=== PATIENT | female | born 1995 | race Asian ===

== ENCOUNTER 2018-10-01 12:55 | Emergency (ER) | payer OTHER ==
--- NOTE | 2018-10-01 13:25 | EDPHY ---
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 She has history of bipolar disorder and is on Latuda does have a single previous history of suicide attempt when she walked into traffic in the remote past. She is having more more anxiety which she attributes to school and school work and is brought in by a fellow student saying that "I do not want to be like this." She admits to intermittent suicidal ideation but no plan. She feels overwhelmed. Symptoms severe at this time. REVIEW OF SYSTEMS: Eye: no change in vision ENT: no sore throat Cardiac: no chest pain or syncope Pulmonary: She states she has had a mild fever cough headache and decreased appetite for the past couple of days. Not short of breath and no sputum production. Abdomen: no vomiting, diarrhea, abdominal pain Musculoskeletal: no back pain Skin: no rash Neuro: no headache, no stiff neck Constitutional: HPI : no urinary symptoms A comprehensive 10 point review of systems is otherwise negative aside from elements mentioned in the history of present illness. PAST MEDICAL HISTORY: Bipolar disorder and anxiety Social history: Denies drugs or alcohol General Appearance: Alert and conversant, cooperative. Eyes: No scleral icterus. ENT, Mouth: Normal mucous membranes. Respiratory: Normal respiratory effort, breath sounds equal, lungs are clear to auscultation. Cardiovascular: Regular rate and rhythm. Gastrointestinal: Abdomen is soft and non tender. Neurological: Alert, face symmetric, normal motor and sensory in extremities. Skin: 3 scratches on her left which which she says are from her cat Angeline. Musculoskeletal: No peripheral edema. Psychiatric: Tearful, depressed affect, denies hallucination or homicidal ideation. Emergency Department course/MDM: Plan for CBC chemistry screening labs and drug screen and mental health evaluation. The patient had a medical screening evaluation performed. There does not appear to be an acute emergent medical or surgical condition which would preclude psychiatric evaluation at this time. Mental health evaluation is requested at 1404. 1500: Signed out to Dr. Lugo with mental health evaluation pending at this time. It has been requested. (Fly Clarke) Constitutional: Initial Vital Signs Temperature (C) 36.5 C 10/01/18 13:07 Heart Rate 95 10/01/18 13:07 Respiratory Rate 22 H 10/01/18 13:07 Blood Pressure 115/71 10/01/18 13:07 O2 Sat (%) 97 10/01/18 13:07 O2 Delivery Mode Room Air Allergies/Adverse Reactions: No Known Allergies Allergy (Unverified 10/01/18 13:06) Home Medications: Medication Instructions Recorded Latuda 10/01/18 Xanax 10/01/18 Medical Decision Making ED Course/Re-evaluation: I took over care of this patient at 3:00 p.m.. The patient is here for depression and suicidal ideation. The patient currently is not on an M1 hold. The patient has been medically cleared. The patient is awaiting behavioral health evaluation. 3:45 p.m., this patient was seen and evaluated by Behavioral Health. She did not meet criteria for placement on an M1 hold. She is not suicidal. They recommended discharge with outpatient follow-up. I feel this is reasonable. Follow-up was thoroughly discussed with the patient. Return to emergency department precautions reviewed. All of her questions were answered. The patient was discharged in good condition. (Ezequiel Lugo) - Data Points Laboratory Results: Laboratory Results 10/01/18 13:34 10/01/18 13:34 10/01/18 10/01/18 10/01/18 13:43 13:34 13:34 WBC RBC Hgb Hct MCV MCH MCHC RDW Plt Count MPV Neut % (Auto) Lymph % (Auto) [place] % (Auto) Eos % (Auto) Baso % (Auto) Nucleat RBC Rel Count Absolute Neuts (auto) Absolute Lymphs (auto) Absolute Monos (auto) Absolute Eos (auto) Absolute Basos (auto) Absolute Nucleated RBC Immature Gran % Immature Gran # Sodium 139 mEq/L mEq/L (135-145) Potassium 4.0 mEq/L mEq/L (3.5-5.2) Chloride 103 mEq/L mEq/L (97-110) Carbon Dioxide 26 mEq/l mEq/l (22-31) Anion Gap 10 mEq/L mEq/L (6-14) BUN 9 mg/dL mg/dL (7-23) Creatinine 0.9 mg/dL mg/dL (0.6-1.0) Estimated GFR > 60 Glucose 92 mg/dL mg/dL (70-100) Calcium 9.1 mg/dL mg/dL (8.5-10.4) Beta HCG, Qual NEGATIVE Salicylates < 1.0 mg/dL L mg/dL (2.0-20.0) Urine Opiates Screen NEGATIVE (NEGATIVE) Acetaminophen < 10 mcg/mL L mcg/mL (10-30) Urine Barbiturates NEGATIVE (NEGATIVE) Ur Phencyclidine Scrn NEGATIVE (NEGATIVE) Ur Amphetamine Screen NEGATIVE (NEGATIVE) U Benzodiazepines Scrn NEGATIVE (NEGATIVE) Urine Cocaine Screen NEGATIVE (NEGATIVE) U Marijuana (THC) Screen NEGATIVE (NEGATIVE) Ethyl Alcohol < 10 mg/dL mg/dL (0-10) 10/01/18 13:34 WBC 4.84 10^3/uL 10^3/uL (3.80-9.50) RBC 5.21 10^6/uL 10^6/uL (4.18-5.33) Hgb 14.6 g/dL g/dL (12.6-16.3) Hct 45.4 % % (38.0-47.0) MCV 87.1 fL fL (81.5-99.8) MCH 28.0 pg pg (27.9-34.1) MCHC 32.2 g/dL L g/dL (32.4-36.7) RDW 12.3 % % (11.5-15.2) Plt Count 229 10^3/uL 10^3/uL (150-400) MPV 9.3 fL fL (8.7-11.7) Neut % (Auto) 66.0 % % (39.3-74.2) Lymph % (Auto) 26.0 % % (15.0-45.0) [place] % (Auto) 7.2 % % (4.5-13.0) Eos % (Auto) 0.4 % L % (0.6-7.6) Baso % (Auto) 0.2 % L % (0.3-1.7) Nucleat RBC Rel Count 0.0 % % (0.0-0.2) Absolute Neuts (auto) 3.19 10^3/uL 10^3/uL (1.70-6.50) Absolute Lymphs (auto) 1.26 10^3/uL 10^3/uL (1.00-3.00) Absolute Monos (auto) 0.35 10^3/uL 10^3/uL (0.30-0.80) Absolute Eos (auto) 0.02 10^3/uL L 10^3/uL (0.03-0.40) Absolute Basos (auto) 0.01 10^3/uL L 10^3/uL (0.02-0.10) Absolute Nucleated RBC 0.00 10^3/uL 10^3/uL (0-0.01) Immature Gran % 0.2 % % (0.0-1.1) Immature Gran # 0.01 10^3/uL 10^3/uL (0.00-0.10) Sodium Potassium Chloride Carbon Dioxide Anion Gap BUN Creatinine Estimated GFR Glucose Calcium Beta HCG, Qual Salicylates Urine Opiates Screen Acetaminophen Urine Barbiturates Ur Phencyclidine Scrn Ur Amphetamine Screen U Benzodiazepines Scrn Urine Cocaine Screen U Marijuana (THC) Screen Ethyl Alcohol Medications Given: Discontinued Medications Alprazolam (Xanax) 0.25 mg PO EDNOW ONE Stop: 10/01/18 14:49 Last Admin: 10/01/18 14:53 Dose: 0.25 mg Departure - Departure Disposition: Home, Routine, Self-Care Clinical Impression: Bipolar disorder, Acute anxiety Condition: Good Instructions: Bipolar Disorder (ED), Generalized Anxiety Disorder (ED) Additional Instructions: Read and follow provided instructions. Follow-up with your primary care physician in 1-2 days for re-evaluation. Take your medication as prescribed. Return to the emergency department for worsening symptoms, worsening depression , suicidal thoughts or other serious concerns. Referrals: VIRGIL[facility] Heck,. [Clinic] - As per Instructions
[2018-10-01 13:45] LABS: PLATELET COUNT 229 10^3/uL (150-400)
[2018-10-01 14:07] VITALS: BP 115/71
[2018-10-01] MEDS ORDERED: ALPRAZolam 0.25 MG TAB PO ONE (14:48)
== END 2018-10-01 17:09 | disposition home or self-care (01) ==
LOC: EEVIPCON 12:55
DX: F31.9 Bipolar disorder, unspecified (principal); F41.9 Anxiety disorder, unspecified
CPT/HCPCS: 80305; G0480